=== PATIENT | male | born 1975 | race Caucasian/White ===

== ENCOUNTER 2020-11-23 10:56 | Emergency (ER) | payer OTHER, SELFPAY ==
--- NOTE | ~2020-11-23 | XR_ITS ---
XR abdomen/kub 1V 11/23/2020 11:51 INDICATION: Flank pain TECHNIQUE: KUB COMPARISON: None FINDINGS: Bowel gas pattern is normal. There is no evidence of free air, mass, organomegaly, ascites or obstruction. No abnormal calculi are seen. The bones appear intact. IMPRESSION: 1: No acute abdominal abnormality identified. Reviewed, dictated and finalized at location B. LEATHER TRIMMER
--- NOTE | ~2020-11-23 | CT_ITS ---
EXAMINATION: CT abdomen pelvis wo con DATE: 11/23/2020 11:22 INDICATION: Right flank pain TECHNIQUE: Computed tomography (CT) of the abdomen and pelvis was performed without intravenous contr ast. The dose-length product (DLP) was 573.30 mGy-cm. Automated exposure control and iterative recons truction technique were employed. COMPARISON: None FINDINGS: Minimal dependent atelectasis is present in the lung bases. The heart size is normal. The l iver, spleen, pancreas, gallbladder, and adrenal glands are normal. There is a 3 mm stone of the righ t mid ureter which causes mild right hydroureteronephrosis. There are multiple small nonobstructing s tones of the right kidney which measure up to 3 mm. There are three nonobstructing stones of the left kidney which measure up to 3 mm. No pathologically enlarged abdominal or pelvic lymph nodes are iden tified. There is no free intraperitoneal gas or evidence of bowel obstruction. 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 There is mild lumbar spondylosis. IMPRESSION: 1. 3 mm stone of the right mid ureter causing mild right hydroureteronephrosis. Consider KUB for kylah tment planning purposes. 2. Bilateral nonobstructing nephrolithiasis. Reviewed, dictated and finalized at location A. ET PRESSMAN IMPRESSION: 1. 3 mm stone of the right mid ureter causing mild right hydroureteronephrosis. Consider KUB for treatment planning purposes. 2. Bilateral nonobstructing nephrolithiasis.
[2020-11-23 11:03] VITALS: BP 190/109; PULSE 76; RESP 18; TEMP 36.2; O2SAT 100
--- NOTE | 2020-11-23 11:15 | ED.GENADULT ---
HPI - General Adult General Chief complaint: Abdominal Pain Stated complaint: r flank pain, hematuria Time Seen by Provider: 11/23/20 10:57 Source: RN notes reviewed History of Present Illness HPI narrative: Patient presents emergency department from home for right flank pain states the pain began 3 days ago radiates around to the right abdomen described as sharp and stabbing states is associated with hematuria as well as nausea states he last took ibuprofen this morning states he does have a history of previous kidney stones and feels similar he denies any fevers or chills chest pain shortness of breath diarrhea or any other symptoms Related Data Allergies Allergy/AdvReac Type Severity Reaction Status Date / Time No Known Allergies Allergy Mild Verified 11/23/20 11:23 Review of Systems Review of Systems: Narrative: Gen.: Denies fevers or chills ENT: Denies congestion Respiratory: Denies shortness of breath or cough CV: Denies chest pain or palpitations GI see HPI denies burning, urgency, frequency reports hematuria Musculoskeletal: Denies back pain or muscle pain Neuro: Denies numbness, tingling, weakness or focal weakness Skin: Denies rash Except as documented, all other systems reviewed and negative [facility] Past Medical History Medical History (Updated 11/23/20 @ 13:02 by Ector Awad DO) Kidney stone Social History Social History (Updated 11/23/20 @ 11:16 by Ector Awad DO) Smoking status: Never smoker Gender identity (if verbalized by the patient): Male Exam Narrative: Exam Narrative: APPEARANCE: No acute distress, nontoxic, resting in bed EYES: EOMI HEENT: Normocephalic, atraumatic, OMM RESPIRATORY: No respiratory distress Clear to auscultation bilaterally with no rhonchi wheezing or rales. CARDIOVASCULAR: Regular rate and rhythm without murmurs rubs or gallops. ABDOMINAL: Soft, nontender, nondistended, no rebound or guarding right flank tenderness MUSCULOSKELETAl: Moves all extremities. No clubbing, cyanosis or edema. NEURO: Awake and alert. Following commands, speech normal, no focal deficits SKIN:: Warm, dry. No rashes lesions or abrasions PSYCHIATRIC: Normal affect/mood, Course Course Emergency Course: Discussed with patient results of workup and diagnosis. Discussed need for follow-up with primary care, proper use of medication, and reasons to return to the emergency department. Patient understands and agrees to current treatment plan Vital Signs Vital signs: Vital Signs Temperature 97.1 F L 11/23/20 11:03 Pulse Rate 76 11/23/20 11:03 Respiratory Rate 18 11/23/20 11:03 Blood Pressure 190/109 H 11/23/20 11:03 Pulse Oximetry 100 11/23/20 11:03 Temperature 97.1 F L 11/23/20 11:03 Pulse Rate 76 11/23/20 11:03 Respiratory Rate 18 11/23/20 11:03 Blood Pressure 190/109 H 11/23/20 11:03 Pulse Oximetry 100 11/23/20 11:03 Medical Decision Making Vital Signs Vital Signs: Vital Signs Temperature 97.1 F L 11/23/20 11:03 Pulse Rate 76 11/23/20 11:03 Respiratory Rate 18 11/23/20 11:03 Blood Pressure 190/109 H 11/23/20 11:03 Pulse Oximetry 100 11/23/20 11:03 Temperature 97.1 F L 11/23/20 11:03 Pulse Rate 76 11/23/20 11:03 Respiratory Rate 18 11/23/20 11:03 Blood Pressure 190/109 H 11/23/20 11:03 Pulse Oximetry 100 11/23/20 11:03 Lab Data Result diagrams: 11/23/20 11:07 11/23/20 11:07 Labs: Lab Results 11/23/20 11/23/20 11/23/20 Range/Units 11:07 11:07 11:10 WBC 10.1 H (4.5-10.0) K/mm3 RBC 4.93 (4.6-6.20) M/mm3 Hgb 15.7 (14.0-18.0) g/dL Hct 46.9 (42.0-52.0) % MCV 95.1 (80-100) fl MCH 31.8 (26-34) pg MCHC 33.5 (32-36) g/dl RDW 13.1 (11.5-14.5) % Plt Count 264 (150-375) k/mm3 MPV 9.0 (7.4-10.4) fl Immature Gran % (Auto) 0.3 (0-0.5) % Neut % (Auto) 66.4 (45.5-73.1) % Lymph % (Auto) 22.0 (18.3-44.2) % Mayes % (Auto)
[2020-11-23 11:18] LABS: Basophils Absolute Auto 0.1 K/mm3 (0.0-0.1); Basophils Percent Auto 0.7 % (0.2-1.2); Eosinophils Absolute Auto 0.3 K/mm3 (0-0.3); Hematocrit 46.9 % (42.0-52.0); Hemoglobin 15.7 g/dL (14.0-18.0); Immature Granulocyte Absolute 0.03 K/mm3 (0.00-0.031); Immature Granulocyte Percent A 0.3 % (0-0.5); Lymphocytes Absolute Auto 2.22 K/mm3 (0.9-3.2); Mean Corpuscular HGB Conc 33.5 g/dl (32-36); Mean Corpuscular Hemoglobin 31.8 pg (26-34); Mean Corpuscular Volume 95.1 fl (80-100); Monocytes Absolute Auto 0.8 K/mm3 (0.1-0.6); Monocytes Percent Auto 7.6 % (2.6-8.5); Neutrophils Absolute Auto 6.7 K/mm3 (1.3-6.7); Neutrophils Percent Auto 66.4 % (45.5-73.1); Platelet Count Result 264 k/mm3 (150-375); Red Blood Count 4.93 M/mm3 (4.6-6.20); Red Cell Distribution Width 13.1 % (11.5-14.5); White Blood Count 10.1 K/mm3 (4.5-10.0)
[2020-11-23 11:24] LABS: Add Urine Microscopic? YES; Appearance Urine Clear (Clear); Bacteria Urine Trace /hpf; Bilirubin Urine Negative (Negative); Blood Urine 3+ (Negative); Color Urine Yellow (Yellow); Glucose Urine UA Negative (Negative); Ketones Urine Trace mg/dL (Negative); Leukocyte Esterase Ur Negative LEU/UL (Negative); Mucus Urine Few /lpf; Nitrate Urine Negative (Negative); Protein Urine 1+ mg/dL (Negative); RBC Urine 21-50 /hpf (0-2); Specific Grav Ur 1.019 (1.001-1.035); Urobilinogen Urine Negative mg/dL (<2.0); WBC Urine 0-3 /hpf
[2020-11-23] MEDS: MORPHINE SULFATE (*CRX) 4 MG/ML INJ IV PUSH (11:37)
[2020-11-23] MEDS: ONDANSETRON INJ 4 MG/2 ML VIAL IV PUSH (11:37)
[2020-11-23] MEDS: SODIUM CHLORIDE 0.9% IV 1,000 ML 999 ML IV CONT (11:38)
[2020-11-23 11:41] LABS: Anion Gap 7 mmol/L (8-16); Blood Urea Nitrogen 20 mg/dL (9-20); Calcium 9.2 mg/dL (8.4-10.2); Carbon Dioxide 31 mmol/L (22-30); Chloride 102 mmol/L (98-107); Estimated CRCL calculation 90 ml/min; Estimated Glomerular Filt Rate > 60; Glucose 94 mg/dL (75-110); Potassium 4.1 mmol/L (3.4-5.0); Sodium 140 mmol/L (137-145)
[2020-11-23] MEDS: TAMSULOSIN HCL 0.4 MG CAPSULE PO (12:12)
[2020-11-23 13:25] VITALS: BP 116/93; PULSE 69; RESP 18; O2SAT 97
== END 2020-11-23 13:26 | disposition home or self-care (01) ==
PROVIDERS: Emergency Provider Emergency Medicine
DX: N20.0 Calculus of kidney (principal)
CPT/HCPCS: 36415; 74018; 74176; 80048; 81001; 85025; 96361; 96365; 96375; 99284; A9270; J0131; J2270; J2405; J7030